=== PATIENT | female | born 1960 | race Caucasian/White ===

== ENCOUNTER 2019-03-17 11:50 | Inpatient (IN) | payer BC, OTHER ==
[~2019-03-17] VITALS: Ht 167.6 cm; Wt 69.5 kg
--- NOTE | 2019-03-17 12:24 | PHYS DOC ---
Past History Past Medical History: A-Fib, Hypertension, Hyperthyroid Past Surgical History: Appendectomy, Cholecystectomy Smoking: Non-smoker Alcohol Use: None Drug Use: None Adult General Chief Complaint Chief Complaint: Palpitations HPI HPI Patient is a 58-year-old female presents with chest discomfort that radiated down her left arm along with palpitations. This started this morning while at [employer]. She felt like she was going to pass out. She does have a history of atrial fibrillation and she took 2 of her 25 mg atenolol tablets with limited relief. She did not actually pass out. She is noted some burping and belching going on. Unable to describe the discomfort. It is mild at worst currently.[] Review of Systems Review of Systems Constitutional: Denies fever or chills [] Eyes: Denies change in visual acuity, redness, or eye pain [] HENT: Denies nasal congestion or sore throat [] Respiratory: Denies cough or shortness of breath [] Cardiovascular: No additional information not addressed in HPI [] GI: Denies abdominal pain, nausea, vomiting, bloody stools or diarrhea [] : Denies dysuria or hematuria [] Musculoskeletal: Denies back pain or joint pain [] Integument: Denies rash or skin lesions [] Neurologic: Denies headache, focal weakness or sensory changes [] Endocrine: Denies polyuria or polydipsia [] All other systems were reviewed and found to be within normal limits, except as documented in this note. Current Medications Current Medications Current Medications Medications (Trade) Dose Ordered Sig/[facility] Start Time Stop Time Status Last Admin Dose Admin Aspirin (Children'S Aspirin) 324 mg 1X ONCE 03/17/19 12:30 03/17/19 12:31 UNV Physical Exam Physical Exam Constitutional: Well developed, well nourished, no acute distress, non-toxic appearance. [] HENT: Normocephalic, atraumatic, bilateral external ears normal, oropharynx moist, no oral exudates, nose normal. [] Eyes: PERRLA, EOMI, conjunctiva normal, no discharge. [] Neck: Normal range of motion, no tenderness, supple, no stridor. [] Cardiovascular:Heart rate regular rhythm, no murmur [] Lungs & Thorax: Bilateral breath sounds clear to auscultation [] Abdomen: Bowel sounds normal, soft, no tenderness, no masses, no pulsatile masses. [] Skin: Warm, dry, no erythema, no rash. [] Back: No tenderness, no CVA tenderness. [] Extremities: No tenderness, no cyanosis, no clubbing, ROM intact, no edema. [] Neurologic: Alert and oriented X 3, normal motor function, normal sensory function, no focal deficits noted. [] Psychologic: Affect normal, judgement normal, mood normal. [] Current Patient Data Vital Signs Vital Signs Date Time Temp Pulse Resp B/P (MAP) Pulse Ox O2 Delivery O2 Flow Rate FiO2 03/17/19 12:01 Room Air 03/17/19 12:01 97.8 79 20 100 EKG EKG EKG shows a sinus rhythm at 70 bpm, normal axis, QTC 426 ms, no ST elevations. Interpreted by me at 1207[] Radiology/Procedures Radiology/Procedures PROCEDURE: PORTABLE CHEST 1V PORTABLE CHEST 1V History: Chest pain for one day Comparison: July 22, 2012 Findings: Single view of the chest is submitted. There is no infiltrate, pneumothorax, or effusion. The pericardial cardiac silhouette is within normal limits in size. Impression: 1. There is no evidence of acute cardiopulmonary disease.[] Course & Med Decision Making Course & Med Decision Making Pertinent Labs and Imaging studies reviewed. (See chart for details) ED course: Patient arrived, was placed in bed, and tolerated exam well. She was given aspirin. She remained in stable condition. After return lab and imaging studies, were discussed with the patient who voiced understanding. Consultation was made with the hospitalist. Patient was admitted in improved condition. Medical decision making: Concerned about this near syncopal episode whether it was due to a dysrhythmia versus an acute coronary syndrome especially given the discomfort that radiated down her left arm. There is no evidence of a STEMI at this time. No evidence of atrial fibrillation. No evidence of significant electrolyte abnormalities.[] Dragon Disclaimer Dragon Disclaimer This electronic medical record was generated, in whole or in part, using a voice recognition dictation system. Departure Departure: Impression: Primary Impression: Near syncope Additional Impression: Chest pain Disposition: ADMITTED INPATIENT Admitting Physician: Nixon Og Condition: IMPROVED Referrals: SUZETTE SELF DO, [facility] (PCP) Problem Qualifiers Additional Impression: Chest pain Chest pain type: unspecified Qualified Codes: R07.9 - Chest pain, unspecified TONEY LACEY DO Mar 17, 2019 12:24
[2019-03-17 12:30] LABS: BASO % 1 % (0-3); EOS # 0.1 x10^3/uL (0.0-0.7); EOS % 1 % (0-3); HEMATOCRIT 43.1 % (36.0-47.0); HEMOGLOBIN 14.7 g/dL (12.0-15.5); LYMPH # 1.8 x10^3/uL (1.0-4.8); LYMPH % 35 % (24-48); MEAN CORPUSCULAR HEMOGLOBIN 30 pg (25-35); MEAN CORPUSCULAR HGB CONC 34 g/dL (31-37); MEAN CORPUSCULAR VOLUME 89 fL (79-100); MONO # 0.4 x10^3/uL (0.0-1.1); MONO % 7 % (0-9); NEUT # 2.9 x10^3uL (1.8-7.7); NEUT % 56 % (31-73); PLATELET COUNT 268 x10^3/uL (140-400); RED BLOOD COUNT 4.84 x10^6/uL (3.50-5.40); RED CELL DISTRIBUTION WIDTH 13.1 % (11.5-14.5); WHITE BLOOD COUNT 5.2 x10^3/uL (4.0-11.0)
[2019-03-17] MEDS ORDERED: ASPIRIN 81 MG TAB.CHEW PO ONE (12:30)
[2019-03-17 12:38] LABS: BACTERIA,URINE 0 /HPF (0-FEW); BILIRUBIN,URINE NEG (NEG); CLARITY,URINE CLEAR; COLOR,URINE YELLOW; GLUCOSE,URINE NEG (NEG); NITRITE,URINE NEG (NEG); UROBILINOGEN,URINE 0.2 mg/dL (0.2 mg/dL); WBC,URINE 0 /HPF (0-4)
[2019-03-17 12:39] LABS: SQUAMOUS EPITHELIAL CELL,UR OCC /LPF
[2019-03-17 12:45] LABS: ALBUMIN 4.3 g/dL (3.4-5.0); ALBUMIN/GLOBULIN RATIO 1.2 (1.0-1.7); CALCIUM 8.7 mg/dL (8.5-10.1); CREATININE 0.9 mg/dL (0.6-1.0); GFR 64.3; MAGNESIUM 1.9 mg/dL (1.8-2.4); POTASSIUM 3.3 mmol/L (3.5-5.1); TOTAL BILIRUBIN 0.7 mg/dL (0.2-1.0)
--- NOTE | 2019-03-17 12:59 | RAD ---
PORTABLE CHEST 1V History: Chest pain for one day Comparison: July 22, 2012 Findings: Single view of the chest is submitted. There is no infiltrate, pneumothorax, or effusion. The pericardial cardiac silhouette is within normal limits in size. Impression: 1. There is no evidence of acute cardiopulmonary disease. Electronically signed by: Arturo Fenton MD (03/17/2019 12:56 PM) [facility]
[2019-03-17] MEDS ORDERED: ONDANSETRON PF 4 MG/2 ML VIAL. IV PRN (13:30)
[2019-03-17] MEDS ORDERED: ACETAMINOPHEN 325 MG TABLET PO PRN (13:30)
[2019-03-17] MEDS ORDERED: NITROGLYCERIN SUBLINGUAL 0.4 MG BOTTLE OF 25. SL PRN (13:30)
[2019-03-17 14:51] VITALS: BP 148/61
[2019-03-17] MEDS ORDERED: ATEN25TA42 PO (16:05)
--- NOTE | 2019-03-17 17:08 | EKG ---
[address] [address] Test Date: 2019-03-17 Test Time: 12:04:40 Pat Name: MACHELLE JONES Department: Room: 119 A Gender: F Shrimp Trawler: RICH : 1960 Requested By: TONEY LACEY Order Number: [id number] Reading MD: Lul Rogel Measurements Intervals [place] Rate: 70 P: 48 CT: 190 QRS: 36 QRSD: 74 T: 28 QT: 392 QTc: 426 Interpretive Statements SINUS RHYTHM Electronically Signed On 03-20-2019 17:40:07 CDT by Lul Rogel
--- NOTE | 2019-03-17 17:55 | HP ---
ADMIT DATE: 03/17/2019 HISTORY OF PRESENT ILLNESS: The patient is a 58-year-old female patient, who came with a complaint of chest discomfort that radiates down to her left arm, along with palpitations. This started while at [employer]. She felt like she was going to pass out. She does have a history of atrial flutter. She took two of her 25 mg atenolol tablets with limited relief; she did not actually pass out. She has noted some burping and belching going on, unable to describe the discomfort. She did have mild nausea when she arrived to the Emergency Room, but denied any vomiting. Denied any shortness of breath. Denied any diaphoresis. She did have discomfort in her left arm. She was evaluated in the Emergency Room. Her EKG showed that she was in sinus rhythm at a rate of 70 beats per minute, normal axis, normal corrected QT interval, and no ST segment elevation. Chest x-ray was unremarkable, showed no infiltrate or pneumothorax. Her first set of cardiac enzymes showed troponin to be less than 0.017. Therefore, the patient was admitted to do 2 more sets of cardiac enzymes and to consult the Cardiology team. PAST MEDICAL HISTORY: Significant for Genaro thyroiditis; gastroesophageal reflux disease; irritable bowel syndrome; gastroparesis; hyperlipidemia; atrial flutter; anxiety; and bronchial asthma. Her last stress test was about 9 months ago. PAST SURGICAL HISTORY: Significant for cholecystectomy; appendectomy; melanoma, resected from the skin of the right knee; she has also breast biopsy from both sides, and both were benign. ALLERGIES: SHE IS ALLERGIC TO ZOLOFT, DEPAKOTE, AND LEVAQUIN. MEDICATIONS: She is currently on atenolol 25 mg once a day. She is not taking any blood thinners. She follows with the Cardiology team at [facility]. FAMILY HISTORY: She has one brother, older, and has thyroid issues. One younger sister has diabetes and thyroid problems. Her father at age of 49, because of brain aneurysm, hypertension, and diabetes. Mother is still alive at age 80 and has had diabetes, cerebrovascular accident, and thyroid disease; however, she continues to live in her own house and is fairly independent. SOCIAL HISTORY: She is , has one daughter who is diabetic. She does not smoke, drink alcohol, or use any recreational drugs. She goes to the gym 5-6 times per week, and she is a vocal music instructor. REVIEW OF SYSTEMS: The patient denied any blurring of vision, cataract, glaucoma, or macular degeneration. Denied any earache, tinnitus, or sensorineural deafness. Denied any nosebleeds, stuffy nose, or postnasal drip. Denied any sore throat, sore tongue. She did have mild nausea, but no vomiting. She does have irritable bowel syndrome with diarrhea, but denied any hematemesis, melena, or hematochezia. Denied any dysuria, frequency, or hematuria. Did complain of chest discomfort that is radiating to her left arm, and mild nausea, but no vomiting, no diaphoresis, and no shortness of breath. PHYSICAL EXAMINATION: GENERAL: On arrival to the Emergency Room, she looked well and was clearly in no apparent respiratory distress. There is no pallor, jaundice, cyanosis, or thyromegaly. No jugular venous distension. No lower limb edema. VITAL SIGNS: Her heart rate was 79, blood pressure was 148/61, temperature was 97.8, respiratory rate 20, and oxygen saturation was 100% on room air. HEAD, EYES, EARS, NOSE, AND THROAT: Showed normocephalic, atraumatic. NECK: Supple. HEART: Showed normal first and second heart sounds. No gallop, rub, or murmur. CHEST: Clear to auscultation. No crepitation or rhonchi. ABDOMEN: Scaphoid, soft, and nontender. NEUROLOGICAL: She is awake, alert, and responding appropriately. Her cranial nerves are intact. EXTREMITIES: She moves extremities without difficulty. She ambulates without assistance or assistive devices. LABORATORY DATA: On arrival to the Emergency Room showed a white cell count of 5200, hemoglobin 14.7, hematocrit 43, MCV 89, and platelet count of 268,000 with normal manual differential. Her chemistry showed a serum sodium 142, potassium 3.3, chloride 104, bicarbonate 28, anion gap of 10, BUN 9, creatinine 0.9, and estimated GFR was 64 mL per minute. Her glucose was 92, calcium was 8.7, and magnesium was 1.9. Total bilirubin, AST, ALT, alkaline phosphatase were normal. Her first set of cardiac enzymes showed troponin to be less than 0.017. Her beta-natriuretic peptide was 98. Total protein was 8, albumin was 4.3, lipase 143, and TSH was 2.643. Her prothrombin time was 10.6 and INR 1.1. Her urinalysis was essentially unremarkable. Her chest x-ray showed that there is no infiltrate, pneumothorax or effusion. The cardiac silhouette is within normal limits and size. PLAN: The patient was admitted to do 2 more sets of cardiac enzymes, check her fasting lipid profile, and consult the Cardiology team. LORRIE TILLMAN MD DR: CECILIA/clementina JOB#: [id number] / [id number]
[2019-03-17 18:50] VITALS: BP 108/71
[2019-03-17 22:12] VITALS: BP 132/76
[2019-03-18 05:25] VITALS: BP 114/63
[2019-03-18 06:26] LABS: C REACTIVE PROTEIN 0.9 mg/L (0-3.3); CALCIUM 8.7 mg/dL (8.5-10.1); CREATININE 0.8 mg/dL (0.6-1.0); GFR 73.7; POTASSIUM 3.7 mmol/L (3.5-5.1)
[2019-03-18] MEDS ORDERED: ATENOLOL 25 MG TABLET PO SCH (09:00)
[2019-03-18 10:39] VITALS: BP 119/75
[2019-03-18 15:13] VITALS: BP 108/68
--- NOTE | 2019-03-18 15:45 | CARD ---
MR#: [id number] Date of Study: 03/18/2019 Ordering Physician: LORRIE TILLMAN, Referring Physician: LORRIE TILLMAN Tech: Minerva Bateman RDCS APPROVED REPORT EXAM: Two-dimensional and M-mode echocardiogram with Doppler and color Doppler. Other Information Quality : Good INDICATION Chest Pain 2D DIMENSIONS RVDd2.6 (2.9-3.5cm)Left Atrium(2D)2.6 (1.6-4.0cm) IVSd0.7 (0.7-1.1cm)Aortic Root(2D)3.2 (2.0-3.7cm) LVDd4.7 (3.9-5.9cm)LVOT Diameter2.2 (1.8-2.4cm) PWd0.7 (0.7-1.1cm)LVDs3.2 (2.5-4.0cm) FS (%) 31.0 %SV58.8 ml LVEF(%)58.7 (>50%) Aortic Valve AoV Peak Chris.114.4cm/sAoV VTI21.1cm AO Peak GR.5.2mmHgAO Mean GR.3mmHg BIN (VTI)3.40cm2 Mitral Valve MV E Itqsfxao15.9cm/sMV DECEL [id number] MV A Ensrhjyc97.6cm/sE/A Ratio1.1 Tricuspid Valve TR P. Xntxitcf891ws/sRAP FVVZIHGR6raLb TR Peak Gr.08ztFpVVIT38ndOb LEFT VENTRICLE The left ventricle is normal size. There is normal left ventricular wall thickness. The left ventricu lar systolic function is normal. The Ejection Fraction is 55-60%. There is normal LV segmental wall m otion. RIGHT VENTRICLE The right ventricle is normal size. The right ventricular systolic function is normal. ATRIA The left atrium size is normal. The right atrium size is normal. The interatrial septum is intact wit h no evidence for an atrial septal defect or patent foramen ovale as noted on 2-D or Doppler imaging. AORTIC VALVE The aortic valve is calcified but opens well. Doppler and Color Flow revealed no significant aortic r egurgitation. There is no significant aortic valvular stenosis. MITRAL VALVE The mitral valve is calcified but opens well. There is no evidence of mitral valve prolapse. There is no mitral valve stenosis. Doppler and Color Flow revealed no mitral valve regurgitation noted. TRICUSPID VALVE The tricuspid valve is normal in structure and function. Doppler and Color Flow revealed trace tricus pid regurgitation. The PA pressure was estimated at 20 mmHg. There is no tricuspid valve stenosis. PULMONIC VALVE The pulmonic valve is not well visualized. Doppler and Color Flow revealed no pulmonic valvular regur gitation. There is no pulmonic valvular stenosis. GREAT VESSELS The aortic root is normal in size. The ascending aorta is normal in size. The IVC is normal in size a nd collapses >50% with inspiration. PERICARDIAL EFFUSION There is no evidence of significant pericardial effusion. Critical Notification Critical Value: No <Conclusion> The left ventricular systolic function is normal. The Ejection Fraction is 55-60%. There is normal LV segmental wall motion. Doppler and Color Flow revealed trace tricuspid regurgitation. The PA pressure was estimated at 20 mmHg. There is no evidence of significant pericardial effusion. Signed by : Juan Gunderson, Electronically Approved : 03/18/2019 15:45:23
--- NOTE | 2019-03-18 16:22 | PDOC2 ---
CONSULT Date of Admission DATE: 03/18/19 TIME: 16:22 Reason for Consult: Chest pain and palpitations Referring Physician: Dr. Og Chief Complaint Chest pain Source: Chart review, Patient Problem List Problems Medical Problems: (1) Chest pain Status: Acute (2) Near syncope Status: Acute History of Present Illness 58 y/o female presented with retrosternal chest pain radiating to left arm and associated with palpitations. She has had few similar episodes in past but the symptoms were worse yesterday. She also complained of some belching but denied any orthopnea/PND palpitations or syncope. She has history of atrial flutter and was previously followed by Dr. Gusman at [facility]. Past Medical History Genaro's thyroiditis GERD Paroxysmal atrial flutter Irritable bowel syndrome HLP Asthma Anxiety Past Surgical History Cholecystectomy Appendectomy Breast biopsy Family History CAD, HTN Social History Denied any smoking, alcohol or drug use Current Medications Current Medications Aspirin (Children'S Aspirin) 324 mg 1X ONCE PO Last administered on 03/17/19at 12:28; Start 03/17/19 at 12:30; Stop 03/17/19 at 12:35; Status DC Ondansetron HCl (Zofran) 4 mg PRN Q4HRS PRN IV NAUSEA/VOMITING; Start 03/17/19 at 13:30; Stop 03/18/19 at 13:29; Status DC Acetaminophen (Tylenol) 650 mg PRN Q4HRS PRN PO FEVER; Start 03/17/19 at 13:30; Stop 03/18/19 at 13:29; Status DC Nitroglycerin (Nitrostat) 0.4 mg PRN Q5MIN PRN SL CHEST PAIN; Start 03/17/19 at 13:30; Stop 03/18/19 at 13:29; Status DC Atenolol (Tenormin) 25 mg DAILY PO ; Start 03/18/19 at 09:00 Active Scripts Active Reported Atenolol (Atenolol) 25 Mg Tablet 25 Mg PO DAILY Allergies: Coded Allergies: sertraline (Verified Allergy, Intermediate, 03/17/19) divalproex sodium (Verified Allergy, Unknown, 03/17/19) Anxiety, rash, aches levofloxacin (Verified Allergy, Unknown, 03/17/19) PSYCHOLOGICAL ROS: No: Hallucinations Eyes: No: Loss of vision HEENT: No: Epistaxis Respiratory: No: Hemoptysis, Shortness of breath Cardiovascular: yes: Chest Pain, Palpitations Gastrointestinal: No: Vomiting, Melena Neurological: No: Seizures Skin: No: Rash General: Alert, Oriented X3 HEENT: Atraumatic, PERRLA Lungs: Clear to auscultation Heart: Regular rate Abdomen: Soft Extremities: No edema Neuro: Normal gait, Normal speech Psych/Mental Status: Mood NL VITALS Vital Signs Date Time Temp Pulse Resp B/P (MAP) Pulse Ox O2 Delivery O2 Flow Rate FiO2 03/18/19 15:13 97.3 67 20 108/68 (81) 97 Room Air Labs Laboratory Tests Test 03/17/19 11:55 03/17/19 12:00 03/17/19 17:05 03/17/19 21:30 Urine Collection Type Unknown Urine Color Yellow Urine Clarity Clear Urine pH 7.0 Urine Specific [place] 1.015 Urine Protein Neg (NEG-TRACE) Urine Glucose (UA) Neg mg/dL (NEG) Urine Ketones (Stick) Neg mg/dL (NEG) Urine Blood Mod (NEG) Urine Nitrite Neg (NEG) Urine Bilirubin Neg (NEG) Urine Urobilinogen Dipstick 0.2 mg/dL (0.2 mg/dL) Urine Leukocyte Esterase Neg (NEG) Urine RBC 1-2 /HPF (0-2) Urine WBC 0 /HPF (0-4) Urine Squamous Epithelial Cells Occ /LPF Urine Bacteria 0 /HPF (0-FEW) White Blood Count 5.2 x10^3/uL (4.0-11.0) Red Blood Count 4.84 x10^6/uL (3.50-5.40) Hemoglobin 14.7 g/dL (12.0-15.5) Hematocrit 43.1 % (36.0-47.0) Mean Corpuscular Volume 89 fL (79-100) Mean Corpuscular Hemoglobin 30 pg (25-35) Mean Corpuscular Hemoglobin Concent 34 g/dL (31-37) Red Cell Distribution Width 13.1 % (11.5-14.5) Platelet Count 268 x10^3/uL (140-400) Neutrophils (%) (Auto) 56 % (31-73) Lymphocytes (%) (Auto) 35 % (24-48) Monocytes (%) (Auto) 7 % (0-9) Eosinophils (%) (Auto) 1 % (0-3) Basophils (%) (Auto) 1 % (0-3) Neutrophils # (Auto) 2.9 x10^3uL (1.8-7.7) Lymphocytes # (Auto) 1.8 x10^3/uL (1.0-4.8) Monocytes # (Auto) 0.4 x10^3/uL (0.0-1.1) Eosinophils # (Auto) 0.1 x10^3/uL (0.0-0.7) Basophils # (Auto) 0.0 x10^3/uL (0.0-0.2) Prothrombin Time 10.6 SEC (9.4-11.4) Prothromb Time International Ratio 1.1 (0.9-1.1) Sodium Level 142 mmol/L (136-145) Potassium Level 3.3 mmol/L (3.5-5.1) Chloride Level 104 mmol/L (98-107) Carbon Dioxide Level 28 mmol/L (21-32) Anion Gap 10 (6-14) Blood Urea Nitrogen 9 mg/dL (7-20) Creatinine 0.9 mg/dL (0.6-1.0) Estimated GFR (Cockcroft-Gault) 64.3 BUN/Creatinine Ratio 10 (6-20) Glucose Level 92 mg/dL (70-99) Calcium Level 8.7 mg/dL (8.5-10.1) Magnesium Level 1.9 mg/dL (1.8-2.4) Total Bilirubin 0.7 mg/dL (0.2-1.0) Aspartate Amino Transf (AST/SGOT) 23 U/L (15-37) Alanine Aminotransferase (ALT/SGPT) 28 U/L (14-59) Alkaline Phosphatase 67 U/L (46-116) Troponin I Quantitative < 0.017 ng/mL (0-0.055) < 0.017 ng/mL (0-0.055) < 0.017 ng/mL (0-0.055) BA-Wms-Q-Type Natriuretic Peptide 98 pg/mL (0-124) Total Protein 8.0 g/dL (6.4-8.2) Albumin 4.3 g/dL (3.4-5.0) Albumin/Globulin Ratio 1.2 (1.0-1.7) Lipase 143 U/L (73-393) Thyroid Stimulating Hormone (TSH) 2.643 uIU/mL (0.358-3.740) Test 03/18/19 05:44 Erythrocyte Sedimentation Rate 4 (0-25) Sodium Level 143 mmol/L (136-145) Potassium Level 3.7 mmol/L (3.5-5.1) Chloride Level 106 mmol/L (98-107) Carbon Dioxide Level 27 mmol/L (21-32) Anion Gap 10 (6-14) Blood Urea Nitrogen 9 mg/dL (7-20) Creatinine 0.8 mg/dL (0.6-1.0) Estimated GFR (Cockcroft-Gault) 73.7 Glucose Level 81 mg/dL (70-99) Calcium Level 8.7 mg/dL (8.5-10.1) C-Reactive Protein 0.9 mg/L (0-3.3) Triglycerides Level 75 mg/dL (0-150) Cholesterol Level 216 mg/dL (0-200) LDL Cholesterol, Calculated 152 mg/dL (0-100) VLDL Cholesterol, Calculated 15 mg/dL (0-40) Non-HDL Cholesterol Calculated 167 mg/dL (0-129) HDL Cholesterol 49 mg/dL (40-60) Cholesterol/HDL Ratio 4.0 Assessment/Plan 1. Chest pain with atypical features. NE ruled out. 2D echo showed normal LVF without any wall motion abnormalities. Plan ischemic evaluation as outpatient 2. Parox atrial flutter presenting with palpitations. EKG showed sinus rhythm and tele did not show any significant arrhythmias. Plan event monitor as outpatient possible with primary assistant chief of police Thank you for your consultation SARA MONTENEGRO MD Mar 18, 2019 16:22
--- NOTE | 2019-03-19 17:44 | DS ---
DATE OF DISCHARGE: 03/18/2019 HISTORY OF PRESENT ILLNESS: The patient is a 58-year-old female patient who presented to the Emergency Room with a complaint of retrosternal chest pain radiating to her left arm associated with palpitation. Denied any orthopnea or paroxysmal nocturnal dyspnea. She is known to have atrial flutter for which she is on atenolol 25 mg once a day. She was extensively investigated, has had 3 sets of cardiac enzymes that ruled out myocardial infarction. Her thyroid function tests are normal. Her fasting lipid profile showed her serum triglycerides were 75, total cholesterol was 216, LDL cholesterol was 152, VLDL was 15, and HDL cholesterol was 49. Cholesterol to HDL cholesterol was 4. She was seen by the quality control clerk and an echocardiogram done showed that her left ventricular systolic function is normal, ejection fraction is 55-60%. There is normal left ventricular segmental wall motion. Doppler and color flow revealed trace tricuspid regurgitation. Pulmonary artery pressure was estimated at 20 mmHg. There is no evidence of significant pericardial effusion. The quality control clerk recommended ischemic workup as an outpatient and also because of her flutter, he recommended event monitor also as an outpatient. PHYSICAL EXAMINATION: GENERAL: On discharge, the patient was resting slightly propped up in bed, in no apparent distress, slightly pale, but no jaundice, cyanosis, or thyromegaly. No jugular venous distension. No limb edema. VITAL SIGNS: Her heart rate was 67, blood pressure was 108/68, temperature was 97.3, respiratory rate 20, and oxygen saturation was 97% on room air. HEAD, EYES, EARS, NOSE AND THROAT: Showed normocephalic, atraumatic. NECK: Supple. HEART: Showed normal first and second heart sounds. No gallop, rub or murmur. CHEST: Clear to auscultation. No crepitation or rhonchi. ABDOMEN: Distended, soft, nontender. No guarding or rigidity. No organomegaly. All hernial orifice intact. Bowel sounds normal. NEUROLOGIC: She is awake, alert, responding appropriately. All cranial nerves are intact. She moves extremities without difficulty. LABORATORY DATA: Showed a white cell count 5200, hemoglobin 14.7, hematocrit 43, MCV 89 and platelet count of 268,000. Her serum sodium was 143, potassium 3.7, chloride 106, bicarbonate 27, anion gap of 10, BUN 9, creatinine 0.8, estimated GFR was 74 mL per minute. Her glucose was 81, calcium was 8.7. DISCHARGE MEDICATIONS: The patient was discharged home to continue on atenolol 25 mg once a day and arrangement would be made for ischemic workup and event monitor as an outpatient. LORRIE TILLMAN MD DR: CECILIA/clementina JOB#: [id number] / [id number]
== END 2019-03-18 17:04 | disposition home or self-care (01) | DRG 313 ==
LOC: ER 11:50 → 1 SOUTH 14:24 → OBSVTOIN 14:49
PROVIDERS: ADMIT Internal Medicine; ATTEND Internal Medicine
DX: R07.89 Other chest pain (principal); I48.92 Unspecified atrial flutter; E06.3 Autoimmune thyroiditis; E78.5 Hyperlipidemia, unspecified; I10 Essential (primary) hypertension; I48.91 Unspecified atrial fibrillation; J45.909 Unspecified asthma, uncomplicated; K21.9 Gastro-esophageal reflux disease without esophagitis; K58.9 Irritable bowel syndrome, unspecified; F41.9 Anxiety disorder, unspecified; E05.90 Thyrotoxicosis, unspecified without thyrotoxic crisis or storm; Z82.3 Family history of stroke; Z82.49 Family history of ischemic heart disease and other diseases of the circulatory system; Z83.3 Family history of diabetes mellitus; Z85.820 Personal history of malignant melanoma of skin; Z90.49 Acquired absence of other specified parts of digestive tract; Z88.1 Allergy status to other antibiotic agents; Z88.8 Allergy status to other drugs, medicaments and biological substances
CPT/HCPCS: 36415; 71045; 80048; 80053; 80061; 81001; 83690; 83735; 83880; 84443; 84484; 85025; 85610; 85651; 86140; 93005; 93306; G0379; 99285-25

== ENCOUNTER 2020-04-27 14:18 | Emergency (ER) | payer OTHER ==
[~2020-04-27] VITALS: Ht 167.6 cm; Wt 60.8 kg
[~2020-04-27 14:18] MED LIST: ATEN25TA42 PO
--- NOTE | 2020-04-27 14:42 | PHYS DOC ---
Past History Past Medical History: A-Fib, Hypertension, Hyperthyroid Past Surgical History: Appendectomy, Cholecystectomy Smoking: Non-smoker Alcohol Use: None Drug Use: None General Adult EDM: Chief Complaint: VISION PROBLEM HPI: HPI: Patient is a 59-year-old female who presents to the emergency department for evaluation. She states that she experienced some flashing circular lights in her right eye and then in both eyes earlier this morning, followed by the gradual onset of a headache. She states she has a history of "ocular migraines", with similar auras in the past and gets them about twice a year. She states she does not like to take medication and thought that this headache would just go away as her other headaches typically do. She states she does not usually take medication for her headaches. She states that when her headache persisted, she went to see an mammography technologist, who reported to me when I spoke with her that the patient's visual exam was completely normal and they sent her to the emergency department for evaluation of a possible neurological process. The patient states that the headache she is experiencing is exactly the same as her prior ocular migraines, just lasting longer. Other than the flashing lights in her vision she has not had any other neurological symptoms. She denies any numbness, weakness, speech difficulties, balance difficulties, or confusion. There are no alleviating or exacerbating factors to her symptoms. The patient states she does have a history of anxiety and takes lorazepam, a low dose, and she states that she has her medication with her and she would like to take 1. She states she does not take the medication more than a few times a year as needed for anxiety. She states she is feeling anxious by being in the hospital. Review of Systems: Review of Systems: Constitutional: Denies fever or chills Eyes: Denies ocular pain HENT: Denies nasal congestion or sore throat Respiratory: Denies cough or shortness of breath Cardiovascular: Denies chest pain or edema GI: Denies abdominal pain, nausea, vomiting, bloody stools or diarrhea : Denies dysuria Musculoskeletal: Denies back pain or joint pain Integument: Denies rash Neurologic: Denies focal weakness or sensory changes Endocrine: Denies polyuria or polydipsia Lymphatic: Denies swollen glands Psychiatric: Denies depression or anxiety Heart Score: Risk Factors: Risk Factors: DM, Current or recent (<one month) smoker, HTN, HLP, family history of CAD, obesity. Risk Scores: Score 0 - 3: 2.5% MACE over next 6 weeks - Discharge Home Score 4 - 6: 20.3% MACE over next 6 weeks - Admit for Clinical Observation Score 7 - 10: 72.7% MACE over next 6 weeks - Early Invasive Strategies Allergies: Allergies: Allergies Coded Allergies Type Severity Reaction Last Updated Verified sertraline Allergy Intermediate 03/17/19 Yes divalproex sodium Allergy Unknown 03/17/19 Yes levofloxacin Allergy Unknown 03/17/19 Yes Physical Exam: PE: PHYSICAL EXAM: CONSTITUTIONAL: Well developed, well nourished HEAD: normocephalic, atraumatic EENT: PERRL, EOMI. Conjunctivae normal color, sclerae non-icteric; moist mucous membranes. NECK: Supple, non-tender; no meningismus. LUNGS: Lungs CTA, breathing even and unlabored. Normal air movement. HEART: Regular rate and rhythm, no murmur CHEST: No deformity; non-tender ABDOMEN: The abdomen is soft, and non-tender, no masses or bruits. EXTREM: Normal ROM; no deformity, no calf tenderness. Normal pulses palpable in all extremities. There is no pedal edema. SKIN: No rash; no diaphoresis NEURO: Alert; normal speech and cognition; CN's grossly intact; strength grossly intact without focal deficit. Visual blandon are intact by confrontation. Nvwriu-vtvb-[id number] and heel olmedo testing is normal. Sensation and motor function is normal. NIH stroke scale score is 0. BACK: No CVA TTP. Current Patient Data: Labs: Laboratory Tests Test 04/27/20 14:47 White Blood Count 6.5 x10^3/uL Red Blood Count 4.79 x10^6/uL Hemoglobin 14.7 g/dL Hematocrit 42.4 % Mean Corpuscular Volume 89 fL Mean Corpuscular Hemoglobin 31 pg Mean Corpuscular Hemoglobin Concent 35 g/dL Red Cell Distribution Width 12.7 % Platelet Count 243 x10^3/uL Neutrophils (%) (Auto) 72 % Lymphocytes (%) (Auto) 20 % Monocytes (%) (Auto) 6 % Eosinophils (%) (Auto) 1 % Basophils (%) (Auto) 1 % Neutrophils # (Auto) 4.7 x10^3uL Lymphocytes # (Auto) 1.3 x10^3/uL Monocytes # (Auto) 0.4 x10^3/uL Eosinophils # (Auto) 0.1 x10^3/uL Basophils # (Auto) 0.0 x10^3/uL Prothrombin Time 10.4 SEC Prothromb Time International Ratio 1.0 Activated Partial Thromboplast Time 23 SEC Sodium Level 136 mmol/L Potassium Level 3.2 mmol/L Chloride Level 100 mmol/L Carbon Dioxide Level 24 mmol/L Anion Gap 12 Blood Urea Nitrogen 18 mg/dL Creatinine 0.9 mg/dL Estimated GFR (Cockcroft-Gault) 64.1 BUN/Creatinine Ratio 20 Glucose Level 111 mg/dL Calcium Level 9.5 mg/dL Total Bilirubin 0.6 mg/dL Aspartate Amino Transf (AST/SGOT) 22 U/L Alanine Aminotransferase (ALT/SGPT) 27 U/L Alkaline Phosphatase 63 U/L Total Protein 7.6 g/dL Albumin 4.2 g/dL Albumin/Globulin Ratio 1.2 Current Medications Medications (Trade) Dose Ordered Sig/Samantha Route PRN Reason Start Time Stop Time Status Last Admin Dose Admin Iohexol (Omnipaque 350 Mg/ml) 100 ml 1X ONCE IV 04/27/20 15:00 04/27/20 15:01 DC 04/27/20 15:12 Potassium Chloride (Klor-Con) 20 meq 1X ONCE PO 04/27/20 16:00 04/27/20 16:01 DC 04/27/20 15:59 EKG: EKG: Normal sinus rhythm with a normal rate, normal axis, normal intervals, there are no acute ischemic ST/T changes. [] Radiology/Procedures: Radiology/Procedures: PROCEDURE: CT ANGIOGRAPHY HEAD AND NECK CTA head and neck History:Visual disturbance, headache Technique: Noncontrast head CT was performed in correlation with this exam. After bolus of intravenous contrast, volumetric CT data acquisition was acquired of the head and neck. Multiplanar reconstruction images to include MIP and 3-D reconstruction images are submitted. Exposure: One or more of the following individualized dose reduction techniques were utilized for this examination: 1. Automated exposure control 2. Adjustment of the mA and/or kV according to patient size 3. Use of iterative reconstruction technique. Comparison: None Any determination of stenosis is based on NASCET criteria. Noncontrast head: There is no evidence of acute intracranial hemorrhage. There is no intra-axial mass effect, midline shift, or extra-axial fluid collection. Rosa-white differentiation of the major vascular territories is maintained. Visualized paranasal sinuses and mastoid air cells are aerated. CTA head: Findings: There is motion degradation. Both vertebral arteries constitute the basilar artery. There is visualization of segments of bilateral PICAs, AICAs not seen. There is visualization of bilateral superior cerebellar arteries. There is patent anterior communicating artery. There is likely tiny right posterior communicating artery, not seen on the left. There is symmetric absence of bony covering along the anterior margins of the petrous internal carotid arteries bilaterally on developmental basis. No significant intracranial stenosis is identified. No significant large vessel occlusive filling defect is identified. Tiny 1 to 2 mm saccular aneurysm projecting inferiorly from the left supraclinoid internal carotid artery is not excluded, vessel not definitively seen more distally although in expected region of posterior communicating artery origin. Impression: 1. No large vessel occlusive filling defect is identified. Exam is degraded by motion. Tiny 1 to 2 mm saccular aneurysm projecting from the left supraclinoid internal carotid artery is possible. Neck CTA: Findings: Of the visualized cervical vasculature, no significant stenosis or dissection flap is identified. Right vertebral artery is somewhat dominant. There are normal anatomic origins of the great vessels. Segments of the proximal left common carotid artery and left subclavian are partially obscured by artifact created by contrast bolus. There is density of the bilateral lung apices greater on the right more likely fibrotic change. There is nonspecific heterogeneity of the enlarged thyroid gland bilaterally. Impression: 1. No significant stenosis or dissection flap is identified of the visualized cervical arterial vasculature, segments of left subclavian and left common carotid artery obscured on this exam. 2. There is fairly diffuse heterogeneity of the enlarged bilateral thyroid gland. [] Course & Med Decision Making: Course & Med Decision Making Pertinent Labs and Imaging studies reviewed. (See chart for details) [] 4:15 PM: The patient's condition remains stable. She continues to decline the need for analgesic medication. I discussed test results in detail with the patient including the incidental finding of an aneurysm which will require further outpatient evaluation. I discussed the inability to definitively rule out an ischemic event in the emergency department and discussed the possibility of overnight hospitalization, but the patient declined the need for hospitalization at this time and I agree with her, clinical suspicion for acute ischemic event is very low. The importance of close outpatient neurology follow-up was discussed in detail. Return precautions were discussed clearly as well. Iramon Disclaimer: Dragon Disclaimer: This electronic medical record was generated, in whole or in part, using a voice recognition dictation system. Departure Departure: Impression: Primary Impression: Migraine headache with aura Disposition: 01 HOME/RESIDENCE PRIOR TO ADM Condition: STABLE Referrals: ANAHI ZEPEDA (PCP) Patient Instructions: Migraine Headache Additional Instructions: Follow-up with Dr. Wharton, neurology, call [phone] to schedule appointment, for follow-up of your symptoms as well as an incidentally discovered aneurysm on your CT scan. Return to medical care for any new or worsening symptoms, any worsening vision changes, headache, numbness, weakness, speech difficulties, or other concerning symptoms. Justification of Admission: Justification of Admission: Justification of Admission Dx: N/A CARMEL MUIR MD Apr 27, 2020 14:42
--- NOTE | 2020-04-27 14:52 | EKG ---
[address] [id number] Test Date: 2020-04-27 Test Time: 14:43:58 Pat Name: MACHELLE JONES Department: Room: Gender: Mdm Sr: : 1960 Requested By: CARMEL MUIR Order Number: [id number] Reading MD: Brian Hartley MD Measurements Intervals [place] Rate: P: RI: QRS: QRSD: T: QT: QTc: Interpretive Statements SR NON-SPECIFIC ST/T CHANGES Electronically Signed On 05-04-2020 13:26:27 CDT by Brian Hartley MD
[2020-04-27] MEDS ORDERED: IOHEXOL 350 MG/ML 100 ML VIAL. IV ONE (15:00)
[2020-04-27 15:14] LABS: BASO % 1 % (0-3); EOS # 0.1 x10^3/uL (0.0-0.7); EOS % 1 % (0-3); HEMATOCRIT 42.4 % (36.0-47.0); HEMOGLOBIN 14.7 g/dL (12.0-15.5); LYMPH # 1.3 x10^3/uL (1.0-4.8); LYMPH % 20 % (24-48); MEAN CORPUSCULAR HEMOGLOBIN 31 pg (25-35); MEAN CORPUSCULAR HGB CONC 35 g/dL (31-37); MEAN CORPUSCULAR VOLUME 89 fL (79-100); MONO # 0.4 x10^3/uL (0.0-1.1); MONO % 6 % (0-9); NEUT # 4.7 x10^3uL (1.8-7.7); NEUT % 72 % (31-73); PLATELET COUNT 243 x10^3/uL (140-400); RED BLOOD COUNT 4.79 x10^6/uL (3.50-5.40); RED CELL DISTRIBUTION WIDTH 12.7 % (11.5-14.5); WHITE BLOOD COUNT 6.5 x10^3/uL (4.0-11.0)
[2020-04-27 15:23] LABS: CALCIUM 9.5 mg/dL (8.5-10.1); CREATININE 0.9 mg/dL (0.6-1.0); GFR 64.1; POTASSIUM 3.2 mmol/L (3.5-5.1)
[2020-04-27 15:28] LABS: ALBUMIN 4.2 g/dL (3.4-5.0); ALBUMIN/GLOBULIN RATIO 1.2 (1.0-1.7); TOTAL BILIRUBIN 0.6 mg/dL (0.2-1.0); TOTAL PROTEIN 7.6 g/dL (6.4-8.2)
[2020-04-27 15:48] VITALS: BP 136/79
--- NOTE | 2020-04-27 15:58 | RAD ---
CTA head and neck History:Visual disturbance, headache Technique: Noncontrast head CT was performed in correlation with this exam. After bolus of intravenous contrast, volumetric CT data acquisition was acquired of the head and neck. Multiplanar reconstruction images to include MIP and 3-D reconstruction images are submitted. Exposure: One or more of the following individualized dose reduction techniques were utilized for this examination: 1. Automated exposure control 2. Adjustment of the mA and/or kV according to patient size 3. Use of iterative reconstruction technique. Comparison: None Any determination of stenosis is based on NASCET criteria. Noncontrast head: There is no evidence of acute intracranial hemorrhage. There is no intra-axial mass effect, midline shift, or extra-axial fluid collection. Rosa-white differentiation of the major vascular territories is maintained. Visualized paranasal sinuses and mastoid air cells are aerated. CTA head: Findings: There is motion degradation. Both vertebral arteries constitute the basilar artery. There is visualization of segments of bilateral PICAs, AICAs not seen. There is visualization of bilateral superior cerebellar arteries. There is patent anterior communicating artery. There is likely tiny right posterior communicating artery, not seen on the left. There is symmetric absence of bony covering along the anterior margins of the petrous internal carotid arteries bilaterally on developmental basis. No significant intracranial stenosis is identified. No significant large vessel occlusive filling defect is identified. Tiny 1 to 2 mm saccular aneurysm projecting inferiorly from the left supraclinoid internal carotid artery is not excluded, vessel not definitively seen more distally although in expected region of posterior communicating artery origin. Impression: 1. No large vessel occlusive filling defect is identified. Exam is degraded by motion. Tiny 1 to 2 mm saccular aneurysm projecting from the left supraclinoid internal carotid artery is possible. Neck CTA: Findings: Of the visualized cervical vasculature, no significant stenosis or dissection flap is identified. Right vertebral artery is somewhat dominant. There are normal anatomic origins of the great vessels. Segments of the proximal left common carotid artery and left subclavian are partially obscured by artifact created by contrast bolus. There is density of the bilateral lung apices greater on the right more likely fibrotic change. There is nonspecific heterogeneity of the enlarged thyroid gland bilaterally. Impression: 1. No significant stenosis or dissection flap is identified of the visualized cervical arterial vasculature, segments of left subclavian and left common carotid artery obscured on this exam. 2. There is fairly diffuse heterogeneity of the enlarged bilateral thyroid gland. Electronically signed by: Arturo Fenton MD (04/27/2020 3:55 PM) [id number]
[2020-04-27] MEDS ORDERED: POTASSIUM CHLORIDE 20 MEQ TABLET.ER. PO ONE (16:00)
== END 2020-04-27 16:44 | disposition home or self-care (01) ==
LOC: ER 14:18
DX: G43.109 Migraine with aura, not intractable, without status migrainosus (principal); I48.91 Unspecified atrial fibrillation; I10 Essential (primary) hypertension; E03.9 Hypothyroidism, unspecified; Z88.1 Allergy status to other antibiotic agents; Z88.8 Allergy status to other drugs, medicaments and biological substances
CPT/HCPCS: 36415; 70496; 70498; 80053; 85025; 85610; 85730; 93005; 99285; Q9967